=== PATIENT | female | born 1950 | race Caucasian/White ===

== ENCOUNTER 2024-01-09 20:49 | Emergency (ER) | payer MEDICARE, MEDICAID, SELFPAY ==
[2024-01-09 20:49] VITALS: BP 151/78; PULSE 114; RESP 18; TEMP 36.6; O2SAT 95; BMI 37.3
--- NOTE | 2024-01-09 21:43 | ECG_ITS ---
APPROVED REPORT Exam: Resting ECG HR:55 bpm ECG Measurements Heart Rate 55 AXES OK 173 P 68 QRSd 108 QRS 11 QT 394 T 17 QTc 383 Conclusion SINUS BRADYCARDIA WITH OCCASIONAL SUPRAVENTRICULAR PREMATURE COMPLEXES LOW QRS VOLTAGE IN PRECORDIAL LEADS [QRS DEFLECTION < 1.0 mV IN CHEST LEADS] BORDERLINE ECG Electronically signed by : MARÍA MARCANO, 01/09/2024 23:18:39
--- NOTE | 2024-01-09 21:43 | XR_ITS ---
PROCEDURE INFORMATION: Exam: XR Chest Exam date and time: 01/09/2024 10:31 PM Age: 73 years old Clinical indication: Other: Syncope TECHNIQUE: Imaging protocol: Radiologic exam of the chest. Views: 1 view. Total images: 1 COMPARISON: No relevant prior studies available. FINDINGS: Lungs: Unremarkable. No consolidation. No pulmonary vascular congestion or edema. Pleural spaces: Unremarkable. No pleural effusion. No pneumothorax. Heart/Mediastinum: Unremarkable. No cardiomegaly. No mediastinal widening or hilar enlargement. Bones/joints: Unremarkable. IMPRESSION: No radiographically acute cardiopulmonary process.
--- NOTE | 2024-01-09 21:44 | ED_ITS ---
Discharge Plan Disposition Chief Complaint: Syncope Referrals Follow up/Referrals: Krystal Haro PA [Primary Care Provider] - See instructions Activity Restrictions/Add. Instructions Additional Instructions/Restrictions: At this time it was felt you are safe to be discharged home. If new or worsening symptoms please do not hesitate to return the emergency department. As discussed please follow-up with your family doctor within 1 week to recheck your kidney function. It is also acceptable that your heart doctor recheck your kidney function on the . Clinical Impressions Clinical Impression: Vasovagal syncope, Heat exhaustion, Creatinine elevation Instructions Patient Instructions: DI for Syncope in Adults (Fainting), DI for Syncope in Children (Fainting) Discharge ED Provider: Giovanny Swan General Adult HPI General Chief complaint: Syncope Stated complaint: lightheaded Time Seen by Provider: 01/09/24 21:05 Mode of Arrival: EMS Source of Information: Patient and EMS Limitations: No Limitations Description of Symptoms (Recalled from ER Triage Doc. by RN): Pt presents to ED via EMS for a near syncopal episode. Family states patient was holding a baby and just leaned over like she was asleep. Pt states she doesn't remember this and has no complaints at this time. Pt is A&O*4 at this time. History of Present Illness HPI narrative: Patient is a 73-year-old female with past medical history of hypertension, hyperlipidemia, on multiple diuretics and antihypertensives who presents emergency department for evaluation of syncope. Patient was at a cookout out in the heat today when she was sitting on a bench holding a baby and the last thing she remembers is that then she woke up in an ambulance. Family members at bedside state that patient felt something was wrong and handed off the baby, slumped over with symmetric transient jerking of her upper extremities. No trauma as they caught her as she fell down. She had transient sonorous respirations with improving mental status and then returned completely normal upon EMS transport. Patient has no acute complaints upon arrival Related Data Allergies Allergy/AdvReac Type Severity Reaction Status Date / Time No Known Allergies Allergy Unknown Uncoded 06/23/17 14:25 [facility] Disclaimer: The information contained in this section may have been updated after the patient was seen, as this information can be updated by other users. Social History Smoking Status: Unknown if ever smoked alcohol intake: never current occupational status: other Travel in the last 8 weeks: None ROS Obtained: Yes Systems reviewed as appropriate & no additional complaints except as documented Physical Exam General General appearance: alert and in no apparent distress Head Head exam: atraumatic and normocephalic Eye Eye exam: Present PERRL and EOMI ENT ENT exam: Present mucous membranes moist Neck Neck exam: Present normal inspection Chest Chest inspection: Present normal inspection and symmetric chest wall rise Respiratory Respiratory exam: Present normal lung sounds bilaterally; Absent respiratory distress Cardiovascular Cardiovascular exam: Present normal rhythm and tachycardia Abdominal Exam Abdominal exam: Present soft; Absent tenderness Extremities Exam Extremities exam: Present normal inspection Neurological Exam Neurological exam: Present alert and CN II-XII intact; Absent motor sensory deficit Psychiatric Psychiatric exam: Present normal affect Skin Skin exam: Present warm and dry Medical Decision Making Erwin Inquiry Pt receiving controlled substance: No Vital Signs: 01/09/24 20:49 01/09/24 21:45 01/09/24 22:00 Temperature 97.8 F Temperature Source Oral Pulse Rate 102 H 102 H Pulse Rate [Left] 114 H Respiratory Rate 18 18 20 Blood Pressure 119/78 137/79 Blood Pressure [Right Arm] 151/78 H Blood Pressure Mean 101 99 Blood Pressure Mean [Right Arm] 102 02 Sat by Pulse Oximetry 95 97 98 Oxygen Delivery Method Room Air Room Air Room Air 01/09/24 22:20 Temperature Temperature Source Pulse Rate 100 H Pulse Rate [Left] Respiratory Rate 21 Blood Pressure 165/87 H Blood Pressure [Right Arm] Blood Pressure Mean 113 Blood Pressure Mean [Right Arm] 02 Sat by Pulse Oximetry 99 Oxygen Delivery Method Room Air Lab Data Lab Results 01/09/24 21:10: WBC 8.8, RBC 3.78 L, Hgb 11.1 L, Hct 34.0 L, MCV 89.8, MCH 29.4, MCHC 32.7, RDW 15.8, Plt Count 314, MPV 9.0, Neut % (Auto) 67.7, Lymph % (Auto) 24.7, [place] % (Auto) 5.1, Eos % (Auto) 1.8, Baso % (Auto) 0.7, Neut # (Auto) 6.0, Lymph # (Auto) 2.2, [place] # (Auto) 0.5, Eos # (Auto) 0.2, Baso # (Auto) 0.1, D- Dimer 0.53 H, Sodium 137, Potassium 4.3, Chloride 106, Carbon Dioxide 21 L, Anion Gap 14.3, BUN 29 H, Creatinine 2.10 H, Estimated Creat Clear 36, Estimated GFR 23 L, Est GFR ( Amer) 28 L, Glucose 153 H, Calcium 9.3, Magnesium 1.6, Total Bilirubin 0.3, AST 20, ALT 19, Alkaline Phosphatase 64, Total Protein 7.2, Albumin 4.1, Globulin 3.1, Albumin/Globulin Ratio 1.3, TSH 0.45 L 01/09/24 21:10 01/09/24 21:10 Orders (Tests/Meds): ED MEDICATIONS Discontinued Medications Generic Name Dose Route Start Last Admin Trade Name Freq PRN Reason Stop Dose Admin Lactated Ringer's 1,000 mls @ 999 mls/hr 01/09/24 21:43 01/09/24 21:48 Lactated Ringer's 1000 Ml Bag IV 01/09/24 22:43 999 mls/hr .Q1H1M ONE Administration ORDERS Category Date Time Status CXR --portable [XR chest portable] Stat Exams 01/09/24 21:43 Ordered POCUS Point of Care (ER Only) Stat Exams 01/09/24 21:49 Ordered CBC w/Auto Diff [Complete Blood Count Auto Diff] Stat Lab 01/09/24 21:10 Completed CMP [Comprehensive Metabolic Panel] Stat Lab 01/09/24 21:10 Completed D-Dimer Stat Lab 01/09/24 21:10 Completed MG [Magnesium] Stat Lab 01/09/24 21:10 Completed TSH [Thyroid Stimulating Hormone] Stat Lab 01/09/24 21:10 Completed EKG Request [ECG Request] Stat Y 01/09/24 21:43 Ordered ECG Data Tracing #1: Independently interpreted by me rate is 55, rhythm is irregular, sinus arrhythmia with bradycardia, no high degree AV block, no ST elevation in anatomical contiguous leads, QTc 383. Medical Decision Narrative: Patient is a 73-year-old female past medical history described above who presents emergency department for evaluation of syncope. Patient is hemodynamically stable nontoxic-appearing upon arrival, afebrile, slight tachycardia. Patient's history and physical is consistent with heat exhaustion with resultant vasovagal syncope with syncopal jerks. Her rapid return to baseline en route as well as no involvement of the lower extremities makes seizure less likely. Patient has nonfocal neurologic exam. However since she is tachycardic differential includes other causes of syncope such as electrolyte abnormality, thyroid issues, pulmonary embolism, among others. Workup be conducted with hematologic labs, chest x-ray, EKG, D-dimer. Initial inventions include 500 cc crystalloid boluses patient may be intravascularly deplete sitting out in the heat today. Initial workup reviewed by me, hematologic labs are nonactionable, no critical electrolyte abnormality, no significant leukocytosis or actionable anemia. Pulmonary embolism excluded with D-dimer per years criteria. X-ray informally interpreted by me, no large pneumothorax or dense lobar infiltrate. Patient has elevated creatinine with unknown baseline since 2017. Upon repeat evaluation patient had volume responsive tachycardia, was tolerating p.o. at bedside, ambulatory. Given this I suspect the patient had heat exhaustion with vasovagal syncope and is appropriate for outpatient management at this time. She will follow-up within 1 week for repeat blood work to assure that her kidney function is stable and has a scheduled appointment with her engraver wood in 6 days which she will maintain. Patient was given return precautions. Critical Care Critical Care Time Critical Care Time: No
[2024-01-09 21:45] VITALS: BP 119/78; PULSE 102; RESP 18; O2SAT 97
[2024-01-09] MEDS: LACTATED RINGERS 1000ML 1,000 ML 999 ML IV (21:48)
[2024-01-09 21:54] LABS: Basophils # 0.1 K/mm3 (0-0.2); Basophils % 0.7 % (0.1-2.0); Eosinophils # 0.2 K/mm3 (0.0-0.4); Eosinophils % 1.8 % (0.1-12.0); Hemoglobin 11.1 g/dL (12.2-16.2); Lymphocytes # 2.2 K/mm3 (0.7-4.5); Lymphocytes % 24.7 % (10-50); Mean Corpuscular HGB Conc 32.7 g/dL (31.8-35.4); Mean Corpuscular Hemoglobin 29.4 pg (27.0-31.2); Mean Corpuscular Volume 89.8 fl (81-99); Monocytes # 0.5 K/mm3 (0.1-1.0); Monocytes % 5.1 % (1.7-9.3); Neutrophils % 67.7 % (37.0-80.0); Platelet Count 314 K/mm3 (142-424); Red Blood Count 3.78 M/mm3 (4.20-5.40); Red Cell Distribution Width 15.8 % (11.5-17.5); White Blood Count 8.8 K/mm3 (4.8-10.8)
[2024-01-09 21:59] LABS: Alanine Aminotransferase 19 U/L (12-78); Albumin Level 4.1 g/dl (3.5-5.0); Albumin/Globulin Ratio 1.3 (1.1-1.8); Alkaline Phosphatase 64 U/L (38-126); Anion Gap 14.3 mEq/L (5-15); Aspartate Amino Transferase 20 U/L (14-36); Bilirubin,Total 0.3 mg/dl (0.2-1.3); Blood Urea Nitrogen 29 mg/dl (7-17); Calcium 9.3 mg/dl (8.4-10.2); Carbon Dioxide 21 mmol/L (22.0-30.0); Chloride 106 mmol/L (98-107); Creatinine Clearance Estimated 36 mL/min (50-200); Estimated Glomerular Filt Rate 23 ml/min (>60); GFR (African American) 28 ML/MIN (>60); Globulin 3.1 g/dL (1.3-3.2); Glucose 153 mg/dl (74-100); Magnesium 1.6 mg/dl (1.6-2.3); Potassium 4.3 mmoL/L (3.5-5.1); Sodium 137 mmol/L (136-145); Total Protein,Serum 7.2 g/dl (6.3-8.2)
[2024-01-09 22:00] VITALS: BP 137/79; PULSE 102; RESP 20; O2SAT 98
[2024-01-09 22:04] LABS: D-Dimer 0.53 ug/mL (0.0-0.5)
[2024-01-09 22:20] VITALS: BP 165/87; PULSE 100; RESP 21; O2SAT 99
[2024-01-09 22:31] LABS: Thyroid Stimulating Hormone 0.45 uIU/mL (0.465-4.68)
[2024-01-09 23:29] VITALS: BP 128/74; PULSE 111; RESP 16; TEMP 36.8; O2SAT 97
== END 2024-01-09 23:30 | disposition home or self-care (01) ==
PROVIDERS: Emergency Provider Emergency Medicine; PCP Physician Assistant
DX: T67.5XXA Heat exhaustion, unspecified, initial encounter (principal); R55 Syncope and collapse; R79.89 Other specified abnormal findings of blood chemistry; I49.9 Cardiac arrhythmia, unspecified; R00.1 Bradycardia, unspecified; I10 Essential (primary) hypertension; E78.5 Hyperlipidemia, unspecified
CPT/HCPCS: 71045; 80053; 83735; 84443; 85025; 85378; 93005; 96360; 99284; J7120